=== PATIENT | female | born 1965 | race Two or more races ===

== ENCOUNTER 2020-02-23 14:09 | Outpatient (CLI) | payer OTHER | END 2020-02-23 14:21 | disposition home or self-care (01) | LOC: SONOGRAMA 14:09 | PROVIDERS: ATTEND Obstetrics & Gynecology | DX: L63.8 Other alopecia areata (principal) ==

== ENCOUNTER 2021-02-15 08:00 | Outpatient (CLI) | payer OTHER | END 2021-02-15 08:30 | disposition home or self-care (01) | LOC: PPH VACUNA 08:00 | PROVIDERS: ATTEND Emergency Medicine Pediatric Emergency Medicine | DX: Z23 Encounter for immunization (principal) ==

== ENCOUNTER → 2021-09-08 | Outpatient (CLI) | payer OTHER | END | disposition home or self-care (01) | LOC: PPH VACUNA 08:00 | PROVIDERS: ATTEND Emergency Medicine Pediatric Emergency Medicine | DX: Z23 Encounter for immunization (principal) ==

== ENCOUNTER 2022-06-07 12:22 | Outpatient (CLI) | payer OTHER | END 2022-06-07 12:32 | disposition home or self-care (01) | LOC: PPH VACUNA 12:22 | PROVIDERS: ATTEND Emergency Medicine Pediatric Emergency Medicine | DX: Z23 Encounter for immunization (principal) ==